=== PATIENT | female | born 1980 | race Caucasian/White ===

== ENCOUNTER 2019-06-13 11:50 | Emergency (ER) | payer MEDICAID ==
[~2019-06-13] VITALS: Ht 160 cm; Wt 51.0 kg
[2019-06-13 14:32] VITALS: BP 138/78
== END 2019-06-13 14:33 | disposition home or self-care (01) ==
LOC: ER 11:50
DX: F41.0 Panic disorder [episodic paroxysmal anxiety] (principal); R03.0 Elevated blood-pressure reading, without diagnosis of hypertension
CPT/HCPCS: 93005; 99284

== ENCOUNTER 2019-10-22 22:40 | Emergency (ER) | payer MEDICAID ==
[~2019-10-22] VITALS: Ht 157.5 cm; Wt 54.2 kg
[2019-10-22 22:42] VITALS: BP 133/88
[2019-10-23] MEDS ORDERED: SODIUM CHLORIDE 0.9% 1,000 ML IV ONE (01:48)
[2019-10-23 02:21] LABS: CLARITY URINE CLEAR (CLEAR); COLOR URINE YELLOW (YELLOW); KETONES URINE 1+ (NEGATIVE); LEUKOCYTE ESTERASE URINE NEGATIVE (NEGATIVE); NITRITE URINE NEGATIVE (NEGATIVE); OCCULT BLOOD URINE NEGATIVE (NEGATIVE); PROTEIN URINE NEGATIVE (NEGATIVE); SPECIFIC GRAVITY URINE 1.015 (1.005-1.030); UROBILINOGEN URINE 0.2 E.U./dL (0.2-1.0)
[2019-10-23 02:34] LABS: CHLORIDE 108 mEq/L (98-107)
[2019-10-23 02:36] LABS: HCG SCREEN NEGATIVE
[2019-10-23 03:07] LABS: BASOPHILS % 0.1 % (0.0-2.0); EOSINOPHILS % 0.2 % (0.0-5.0); HEMATOCRIT. 37.9 % (36.0-48.0); HEMOGLOBIN. 12.9 g/dL (12.0-16.0); LYMPHOCYTES % 23.1 % (20.0-50.0); MEAN CORPUSCULAR HEMOGLOBIN 30.7 pg (28.0-32.0); MEAN CORPUSCULAR VOLUME 90.4 fL (81.0-99.0); MEAN PLATELET VOLUME 8.3 fl (7.4-10.4); MONOCYTES % 3.6 % (2.0-8.0); PLATELET 283 x1000/uL (130-400); RED BLOOD CELL COUNT 4.19 mill/uL (4.2-5.4)
== END 2019-10-23 05:11 | disposition home or self-care (01) ==
LOC: ER 22:40
DX: F41.1 Generalized anxiety disorder (principal); R10.13 Epigastric pain; R11.0 Nausea; R68.83 Chills (without fever)
CPT/HCPCS: 36415; 71045; 80053; 81003; 83605; 84484; 84703; 85025; 87804; 93005; 99284; J7030